=== PATIENT | male | born 1970 | race Caucasian/White ===

== ENCOUNTER 2023-03-30 09:57 | Emergency (ER) | payer MEDICAID, SELFPAY ==
[2023-03-30] MEDS ORDERED: Ibuprofen 800 MG TAB ONE (11:01)
== END 2023-03-30 11:16 | disposition home or self-care (01) ==
LOC: MADERS 09:57
DX: M70.41 Prepatellar bursitis, right knee (principal); F17.210 Nicotine dependence, cigarettes, uncomplicated